=== PATIENT | male | born 1965 | race Two or more races ===

== ENCOUNTER 2020-03-30 10:53 | Emergency (ER) | payer OTHER ==
[~2020-03-30] VITALS: Ht 165.1 cm; Wt 68.0 kg
[~2020-03-30 10:53] MED LIST: DOLOGESIC 500-1 EACH PO; NEXIUM40 MG/PACK
[2020-03-30] MEDS ORDERED: LEXAPRO20 MG (11:19)
[2020-03-30] MEDS ORDERED: ATARAX25 MG (11:19)
[2020-03-30] MEDS ORDERED: DICLOFENAC SODI75 MG PO (13:57)
== END 2020-03-30 14:40 | disposition home or self-care (01) ==
LOC: ER 10:53
DX: M54.89 Other dorsalgia (principal)